=== PATIENT | female | born 1990 | race Caucasian/White ===

== ENCOUNTER → 2018-07-05 | Outpatient (CLI) | payer BC, OTHER | LOC: CIMAGING 12:33 | PROVIDERS: ATTEND Family Medicine | DX: N91.2 Amenorrhea, unspecified (principal) | CPT/HCPCS: 76830-PO ==

== ENCOUNTER 2018-10-17 13:09 | Emergency (ER) | payer BC, OTHER ==
[2018-10-17] MEDS ORDERED: fentaNYL 100 MCG/2 ML INJ IVP ONE (13:22)
[2018-10-17] MEDS ORDERED: ONDANSETRON 4 MG/2 ML VIAL IVP ONE ×2 (13:22→17:35)
[2018-10-17] MEDS ORDERED: NS 1,000 ML IV ONE ×3 (13:22→17:35)
--- NOTE | 2018-10-17 13:30 | EDPHY ---
H & P Smoking Status: Never smoked Time Seen by Provider: 10/17/18 13:15 HPI/ROS: HPI IUD just placed. Pelvic pain now. 27-year-old female by private vehicle with her boyfriend. She is a . She reports that she just had a Mirena IUD place this morning at 9:00 a.m. At a [facility] facility. She reports after placement she had some pelvic pain which she describes more as lower mid abdominal pain. She was told that this would go away. She reports the pain has steadily worsened. She has not had any vomiting. She denies any vaginal bleeding or vaginal discharge. No urinary complaints. Pain described as sharp and cramping. ROS: Constitutional: No fever, no chills. No weakness. Respiratory: No cough. No shortness of breath. Cardiac: No chest pain, no palpitations. Gastrointestinal: As above, no vomiting, no diarrhea. Genitourinary: No hematuria. No dysuria or increased frequency with urination. As above. Musculoskeletal: No back pain. No neck pain. No myalgias or arthralgias. Skin: No rashes. Neurological: No headache. No focal weakness or altered sensation. Past medical history: Depression. She takes Wellbutrin for this. Social history: Nonsmoker. No alcohol. Here with her boyfriend. Physical Exam: General Appearance: Alert, she appears uncomfortable but not in distress. Pale in complexion. This patient is responding to questions appropriately and in full sentences. This patient appears well-hydrated and well-nourished. Eyes: Pupils equal and round no pallor or injection. No lid edema, erythema or injection. Respiratory: There are no retractions, lungs are clear to auscultation with good air movement bilaterally. Cardiovascular: Regular rate and rhythm. No murmur. Gastrointestinal: Abdomen is soft with vague and mild suprapubic in generalized lower mid abdominal tenderness on palpation, no masses, bowel sounds normal. No focal tenderness at McBurney's point. No Miller sign. Neurological: Motor sensory function is grossly intact. Cranial nerves are normal. Gait is normal. Skin: Warm and dry, no rashes. Pale in complexion. Musculoskeletal: Neck is supple and nontender. No CVA tenderness on palpation. Extremities are symmetrical. All joints range without pain or impingement. Psychiatric: No agitation. No depression. Database: EKG: Imaging: Pelvic ultrasound: Extending out of right myometrium. Possible associated perforation. Small amount of free fluid noted. Procedures: Emergency department course: Triage vital signs reviewed and are normal. IV was placed. She was initially given 100 mcg of IV fentanyl for pain with 4 mg of IV Zofran. She will be started on IV normal saline with 1000 cc to be given over the next hour. 2:30 p.m., the patient has returned from ultrasound. She is reporting that her pain is much improved. She currently rates it as a 2/10. She declines further pain medication. Waiting on results of ultrasound. I explained to her and her boyfriend that the most difficult time of an IUD insertion is during the insertion in the immediate 12 hr to 24 hr afterwards regarding pain. Her creatinine was slightly elevated at 1.1 and therefore Toradol was not given. 2:55 p.m., the patient was re-evaluated, she is resting comfortably at this time. Repeat abdominal exam she is soft, nontender nondistended. Results of ultrasound pending. Her blood work and my concerns about her elevated creatinine were discussed with her. Follow-up was discussed. 3:00 p.m., we are currently awaiting the radiologist's report on the patient's pelvic ultrasound. Care turned over to Dr. Rosina Kim at this time. Differential Diagnosis: The differential diagnosis on this patient includes but is not limited to complication with IUD placement. Ectopic , ovarian torsion, tubo- ovarian abscess, vaginal wall laceration, appendicitis, volvulus unlikely. This represents a partial list of diagnoses considered. These considerations are based on history, physical exam, past history, reassessment and diagnostic testing. (Les Slaas) Constitutional: Initial Vital Signs Temperature (C) 36.4 C 10/17/18 13:16 Heart Rate 65 10/17/18 13:16 Respiratory Rate 18 10/17/18 13:16 Blood Pressure 107/59 L 10/17/18 13:16 O2 Sat (%) 100 10/17/18 13:16 O2 Delivery Mode Room Air Allergies/Adverse Reactions: No Known Allergies Allergy (Unverified 10/17/18 13:16) Home Medications: Medication Instructions Recorded Hydrocodone/APAP 5/325 [[place] 1 - 2 tab PO Q4-6PRN PRN #7 tab 10/17/18 5/325 (*)] Wellbutrin Xl 10/17/18 Medical Decision Making - Diagnostics Imaging Results: Imaging Impressions Pelvic/Renal Ultrasound 10/17/18 13:15 Impression: 1. Malpositioned IUD with the right arm extending into the right myometrium. 2. Small amount of free fluid in the pelvis and therefore mild perforation of the IUD cannot be excluded. 3. No ovarian torsion or adnexal masses. Findings and recommendations discussed with Emergency Department physician, Les Salas MD at 1500 hours, 10/17/2018. Final report concurs with initial preliminary interpretation. ED Course/Re-evaluation: I assumed care from Dr. Salas pending consultation with laundry pricing clerk regarding perforated uterus. I re-evaluated the patient who was complaining of ongoing 3 to 4/10 pain but had a soft belly and remained hemodynamically stable. She was noted to have an elevated creatinine and ketones in her urine and has been given a 2nd L of normal saline for presumed hypovolemia. She declined further pain medications.. I discussed the case with Dr. Hester, on-call for OBGYN who recommends transferring the patient to [facility] where she can remove the IUD and observe the patient. I discussed the plan with the patient who understands and is agreeable to this plan. She prefers to have her significant other take her by private vehicle instead of an ambulance. Given that she is hemodynamically stable I think this is safe. I discussed the case with Dr. Chowdhury who accepts the patient in transfer. (Rosina Kim) - Data Points Laboratory Results: 10/17/18 13:30 POC Sodium 137 mEq/L mEq/L (135-145) POC Potassium 4.5 mEq/L mEq/L (3.3-5.0) POC Chloride 109.0 mEq/L mEq/L (97-110) POC Total CO2 22 mEq/L mEq/L (22-31) POC BUN 12 mg/dL mg/dL (7-23) POC Creatinine 1.1 mg/dL H mg/dL (0.6-1.0) POC Glucose 124 mg/dL H mg/dL (70-100) POC Calcium 9.2 mg/dL mg/dL (8.5-10.4) Medications Given: Discontinued Medications Fentanyl (Sublimaze) 100 mcg IVP EDNOW ONE Stop: 10/17/18 13:23 Last Admin: 10/17/18 13:31 Dose: 100 mcg Sodium Chloride (Ns) 1,000 mls @ 0 mls/hr IV EDNOW ONE; Wide Open PRN Reason: Protocol Stop: 10/17/18 13:23 Last Admin: 10/17/18 13:30 Dose: 1,000 mls Sodium Chloride (Ns) 1,000 mls @ 0 mls/hr IV EDNOW ONE; Wide Open PRN Reason: Protocol Stop: 10/17/18 15:15 Last Admin: 10/17/18 15:18 Dose: 1,000 mls Ondansetron HCl (Zofran) 4 mg IVP EDNOW ONE Stop: 10/17/18 13:23 Last Admin: 10/17/18 13:30 Dose: 4 mg Point of Care Test Results: CBC CBC Collection Date 10/17/18 CBC Collection Time 13:25 WBC 7.76 RBC 3.77 HGB 12.5 HCT 36.5 PLT 294 Neut # 5.51 Neut 70.9 LYMPH # 1.73 LYMPH 22.3 MCV 96.8 Chemistry 10/17/18 13:30 POC Sodium 137 mEq/L mEq/L (135-145) POC Potassium 4.5 mEq/L mEq/L (3.3-5.0) POC Chloride 109.0 mEq/L mEq/L (97-110) POC Total CO2 22 mEq/L mEq/L (22-31) POC BUN 12 mg/dL mg/dL (7-23) POC Creatinine 1.1 mg/dL H mg/dL (0.6-1.0) POC Glucose 124 mg/dL H mg/dL (70-100) POC Calcium 9.2 mg/dL mg/dL (8.5-10.4) Urine Collection Date 10/17/18 Collection Time 14:25 HCG Results Negative Departure - Departure Disposition: Home, Routine, Self-Care Clinical Impression: Pain due to intrauterine contraceptive device (IUD), IUD (intrauterine device) in place Condition: Good Instructions: Acute Abdominal Pain (ED) Additional Instructions: Read and follow provided instructions. Follow-up with your primary care physician or OBGYN in 1-2 days for re- evaluation as discussed. Your creatinine which is a measure of your kidney function was slightly elevated in the emergency department. Because of this I do not want you to take ibuprofen or other NSAID type medications until you have been cleared by your primary care physician. You should have your creatinine recheck in 5 days. This can be done by your primary care physician. Take pain medication only as prescribed and only as needed. 1-2 pills every 4- [address] while on this medication. Return to the emergency department for worsening pain, fever, vaginal bleeding or other serious concerns. Referrals: NONE *PRIMARY CARE P,. [Primary Care Provider] - As per Instructions [facility] [Outside] - As per Instructions Prescriptions: Hydrocodone/APAP 5/325 [[place] 5/325 (*)] 1 - 2 tab PO Q4-6PRN PRN #7 tab PRN Reason: Pain, Moderate
--- NOTE | 2018-10-17 17:29 | EDPHY ---
H & P Time Seen by Provider: 10/17/18 13:15 HPI/ROS: Chief complaint. Abdominal pain HPI. 27-year-old female had IUD placed this morning. She felt well when she went to have the IUD placed. Several hours after the IUD placement she began to have crampy low abdominal pain like severe menstrual cramps. No vaginal bleeding or spotting. No chest pain or shortness of breath. She was seen at [facility] originally and ultrasound showed malpositioned IUD with the right arm in the right myometrium and some free fluid in the pelvis. Concern for perforation and patient was transferred to the emergency department ROS 10 systems were reviewed and negative with the exception of the elements mentioned in the history of present illness Past Medical/Surgical History: Asthma, depression, foot surgery Social History: Single, nonsmoker, no alcohol Smoking Status: Never smoked Physical Exam: General Appearance: Alert pleasant well-developed female mild distress vital signs are stable Eyes: Pupils equal and round no pallor or injection. ENT, Mouth: Mucous membranes are moist. Respiratory: There are no retractions, lungs are clear to auscultation. Cardiovascular: Regular rate and rhythm. Gastrointestinal: Abdomen is soft with suprapubic tenderness. Some adnexal tenderness. No discomfort at McBurney's point Neurological: Awake and alert, sensory and motor exams grossly normal. Skin: Warm and dry, no rashes. Musculoskeletal: Neck is supple nontender. Extremities symmetrical, full range of motion. Psychiatric: Patient is oriented X 3, there is no agitation. Constitutional: Initial Vital Signs Temperature (C) 36.4 C 10/17/18 13:16 Heart Rate 65 10/17/18 13:16 Respiratory Rate 18 10/17/18 13:16 Blood Pressure 107/59 L 10/17/18 13:16 O2 Sat (%) 100 10/17/18 13:16 O2 Delivery Mode Room Air O2 (L/minute) 2 Allergies/Adverse Reactions: No Known Allergies Allergy (Unverified 10/17/18 13:16) Home Medications: Medication Instructions Recorded Hydrocodone/APAP 5/325 [[place] 1 - 2 tab PO Q4-6PRN PRN #7 tab 10/17/18 5/325 (*)] Wellbutrin Xl 10/17/18 Medical Decision Making - Diagnostics Imaging Results: Imaging Impressions Pelvic/Renal Ultrasound 10/17/18 13:15 Impression: 1. Malpositioned IUD with the right arm extending into the right myometrium. 2. Small amount of free fluid in the pelvis and therefore mild perforation of the IUD cannot be excluded. 3. No ovarian torsion or adnexal masses. Findings and recommendations discussed with Emergency Department physician, Les Salas MD at 1500 hours, 10/17/2018. Final report concurs with initial preliminary interpretation. Procedures: IV normal saline. Morphine, Zofran, Toradol ED Course/Re-evaluation: I consulted discussed case with Dr. Hester for OBGYN who sees the patient in the emergency department. She removes the IUD. Plan is to watch the patient and make sure she remained stable. Re-evaluation 6:30 p.m. Patient is stable minimal pain. No vaginal bleeding. Patient feels comfortable to be discharged I discussed the case again with Dr. Hester who recommends no antibiotics. Mainly anti-inflammatories and some pain medication are appropriate per Dr. Hester. She will see the patient in the office in the next 1-2 days. Differential Diagnosis: IUD malpositioned with apparent mild uterine perforation - Data Points Laboratory Results: Laboratory Results 10/17/18 13:25 10/17/18 13:25 10/17/18 10/17/18 10/17/18 14:25 13:30 13:25 WBC RBC Hgb Hct MCV MCH MCHC RDW Plt Count MPV Neut % (Auto) Lymph % (Auto) Cobb % (Auto) Eos % (Auto) Baso % (Auto) Nucleat RBC Rel Count Absolute Neuts (auto) Absolute Lymphs (auto) Absolute Monos (auto) Absolute Eos (auto) Absolute Basos (auto) Absolute Nucleated RBC Immature Gran % Immature Gran # POC Sodium 137 mEq/L mEq/L (135-145) Sodium 137 mEq/L mEq/L (135-145) POC Potassium 4.5 mEq/L mEq/L (3.3-5.0) Potassium 4.5 mEq/L mEq/L (3.5-5.2) POC Chloride 109.0 mEq/L mEq/L (97-110) Chloride 104 mEq/L mEq/L (97-110) Carbon Dioxide 20 mEq/l L mEq/l (22-31) POC Total CO2 22 mEq/L mEq/L (22-31) Anion Gap 13 mEq/L mEq/L (6-14) POC BUN 12 mg/dL mg/dL (7-23) BUN 15 mg/dL mg/dL (7-23) Creatinine 1.1 mg/dL H mg/dL (0.6-1.0) POC Creatinine 1.1 mg/dL H mg/dL (0.6-1.0) Estimated GFR > 60 Glucose 108 mg/dL H mg/dL (70-100) POC Glucose 124 mg/dL H mg/dL (70-100) POC Calcium 9.2 mg/dL mg/dL (8.5-10.4) Calcium 9.0 mg/dL mg/dL (8.5-10.4) Urine Color [place] Urine Appearance CLEAR Urine pH 8.0 H (5.0-7.5) Ur Specific [place] 1.026 (1.002-1.030) Urine Protein 2+ H (NEGATIVE) Urine Ketones 1+ H (NEGATIVE) Urine Blood NEGATIVE (NEGATIVE) Urine Nitrate NEGATIVE (NEGATIVE) Urine Bilirubin NEGATIVE (NEGATIVE) Urine Urobilinogen NEGATIVE EU EU (0.2-1.0) Ur Leukocyte Esterase NEGATIVE (NEGATIVE) Urine RBC 1-3 /hpf /hpf (0-3) Urine WBC 1-3 /hpf /hpf (0-3) Ur Epithelial Cells TRACE /lpf /lpf (NONE-1+) Urine Mucus 3+ /lpf H /lpf (NONE-1+) Urine Glucose NEGATIVE (NEGATIVE) 10/17/18 13:25 WBC 8.39 10^3/uL 10^3/uL (3.80-9.50) RBC 3.83 10^6/uL L 10^6/uL (4.18-5.33) Hgb 12.5 g/dL L g/dL (12.6-16.3) Hct 36.8 % L % (38.0-47.0) MCV 96.1 fL fL (81.5-99.8) MCH 32.6 pg pg (27.9-34.1) MCHC 34.0 g/dL g/dL (32.4-36.7) RDW 12.5 % % (11.5-15.2) Plt Count 308 10^3/uL 10^3/uL (150-400) MPV 10.4 fL fL (8.7-11.7) Neut % (Auto) 71.0 % % (39.3-74.2) Lymph % (Auto) 22.8 % % (15.0-45.0) Cobb % (Auto) 5.1 % % (4.5-13.0) Eos % (Auto) 0.2 % L % (0.6-7.6) Baso % (Auto) 0.4 % % (0.3-1.7) Nucleat RBC Rel Count 0.0 % % (0.0-0.2) Absolute Neuts (auto) 5.96 10^3/uL 10^3/uL (1.70-6.50) Absolute Lymphs (auto) 1.91 10^3/uL 10^3/uL (1.00-3.00) Absolute Monos (auto) 0.43 10^3/uL 10^3/uL (0.30-0.80) Absolute Eos (auto) 0.02 10^3/uL L 10^3/uL (0.03-0.40) Absolute Basos (auto) 0.03 10^3/uL 10^3/uL (0.02-0.10) Absolute Nucleated RBC 0.00 10^3/uL 10^3/uL (0-0.01) Immature Gran % 0.5 % % (0.0-1.1) Immature Gran # 0.04 10^3/uL 10^3/uL (0.00-0.10) POC Sodium Sodium POC Potassium Potassium POC Chloride Chloride Carbon Dioxide POC Total CO2 Anion Gap POC BUN BUN Creatinine POC Creatinine Estimated GFR Glucose POC Glucose POC Calcium Calcium Urine Color Urine Appearance Urine pH Ur Specific [place] Urine Protein Urine Ketones Urine Blood Urine Nitrate Urine Bilirubin Urine Urobilinogen Ur Leukocyte Esterase Urine RBC Urine WBC Ur Epithelial Cells Urine Mucus Urine Glucose Medications Given: Discontinued Medications Fentanyl (Sublimaze) 100 mcg IVP EDNOW ONE Stop: 10/17/18 13:23 Last Admin: 10/17/18 13:31 Dose: 100 mcg Sodium Chloride (Ns) 1,000 mls @ 0 mls/hr IV EDNOW ONE; Wide Open PRN Reason: Protocol Stop: 10/17/18 13:23 Last Admin: 10/17/18 13:30 Dose: 1,000 mls Sodium Chloride (Ns) 1,000 mls @ 0 mls/hr IV EDNOW ONE; Wide Open PRN Reason: Protocol Stop: 10/17/18 15:15 Last Admin: 10/17/18 15:18 Dose: 1,000 mls Sodium Chloride (Ns) 1,000 mls @ 0 mls/hr IV EDNOW ONE; Wide Open PRN Reason: Protocol Stop: 10/17/18 17:36 Last Admin: 10/17/18 17:52 Dose: 1,000 mls Ketorolac Tromethamine (Toradol) 30 mg IVP EDNOW ONE Stop: 10/17/18 18:07 Last Admin: 10/17/18 18:29 Dose: 30 mg Morphine Sulfate (Morphine) 6 mg IVP EDNOW ONE Stop: 10/17/18 17:36 Last Admin: 10/17/18 17:45 Dose: 6 mg Ondansetron HCl (Zofran) 4 mg IVP EDNOW ONE Stop: 10/17/18 13:23 Last Admin: 10/17/18 13:30 Dose: 4 mg Ondansetron HCl (Zofran) 4 mg IVP EDNOW ONE Stop: 10/17/18 17:36 Last Admin: 10/17/18 17:45 Dose: 4 mg Point of Care Test Results: CBC CBC Collection Date 10/17/18 CBC Collection Time 13:25 WBC 7.76 RBC 3.77 HGB 12.5 HCT 36.5 PLT 294 Neut # 5.51 Neut 70.9 LYMPH # 1.73 LYMPH 22.3 MCV 96.8 Chemistry 10/17/18 13:30 POC Sodium 137 mEq/L mEq/L (135-145) POC Potassium 4.5 mEq/L mEq/L (3.3-5.0) POC Chloride 109.0 mEq/L mEq/L (97-110) POC Total CO2 22 mEq/L mEq/L (22-31) POC BUN 12 mg/dL mg/dL (7-23) POC Creatinine 1.1 mg/dL H mg/dL (0.6-1.0) POC Glucose 124 mg/dL H mg/dL (70-100) POC Calcium 9.2 mg/dL mg/dL (8.5-10.4) Urine Collection Date 10/17/18 Collection Time 14:25 HCG Results Negative Departure - Departure Disposition: Home, Routine, Self-Care Clinical Impression: Pain due to intrauterine contraceptive device (IUD), IUD (intrauterine device) in place Condition: Good Instructions: Acute Abdominal Pain (ED) Additional Instructions: Read and follow provided instructions. Follow-up with your primary care physician or OBGYN in 1-2 days for re- evaluation as discussed. Your creatinine which is a measure of your kidney function was slightly elevated in the emergency department. Because of this I do not want you to take ibuprofen or other NSAID type medications until you have been cleared by your primary care physician. You should have your creatinine recheck in 5 days. This can be done by your primary care physician. Ibuprofen 600 mg every 6 hr for discomfort. Hydrocodone if necessary for pain. Hydrocodone contain some Tylenol Nara do not take extra Tylenol a taking hydrocodone. May use hydrocodone and ibuprofen together. Hydrocodone dose is 1 pill every 4-6 hours as needed for pain. Do not drive while on this medication. Return to the emergency department for worsening pain, fever, vaginal bleeding or other serious concerns. Referrals: [facility] [Outside] - As per Instructions NONE *PRIMARY CARE P,. [Primary Care Provider] - As per Instructions Caterina Hester MD [Medical Doctor] - 1-2 days without fail Prescriptions: Hydrocodone/APAP 5/325 [[place] 5/325 (*)] 1 - 2 tab PO Q4-6PRN PRN #7 tab PRN Reason: Pain, Moderate
[2018-10-17] MEDS ORDERED: KETOROLAC 30 MG/1 ML SDV IVP ONE (18:06)
[2018-10-17 18:23] LABS: PLATELET COUNT 308 10^3/uL (150-400)
[2018-10-17 19:26] VITALS: BP 102/61
[2018-10-17] MEDS ORDERED: HYDROCOD/APAP 5/325 PREPACK#6 BTL TAKEHOME ONE (19:38)
--- NOTE | 2018-10-17 20:25 | GCON ---
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 HISTORY OF PRESENT ILLNESS: The patient is a 27-year-old 0, who had a Mirena IUD placed at [facility] on the morning of the . She reported that the procedure was quite lucien nful. She felt lightheaded, dizzy, and nauseous initially, but the procedure was felt to have gone w ell, and she was discharged home. Approximately an hour after the insertion, she developed significa nt pelvic pain and lower midabdominal pain that steadily worsened over time. She had nausea, but no vomiting. The pain caused her to be concerned, and she presented to the [facility] in [place]. She had no vaginal bleeding or abnormal vaginal discharge. No urinary complaints. Her p ain was generally a severe cramping and somewhat sharp. On evaluation in the [facility], she was afebrile. Vital signs were stable. She had a pelvic ultrasound, which revealed a Mirena IUD, and the right ar m was felt to be embedded in the myometrium, extending into the right myometrium, and there was a sma ll amount of free fluid in the pelvis. The ovaries were normal. No torsion. No adnexal masses. Th e differential was possible malpositioned IUD causing partial uterine perforation. The patient was t [facility] sent to the emergency department at [facility] for evaluation. The patient reported that her pain was improved with medication, but generally was still pretty significant cramping pain, 7/10. Some nausea. No vomiting. Again, no vaginal bleeding or abnormal vaginal discharge. When we discussed o ptions, the patient wished to have the IUD removed after my recommendations. The patient has no past obstetrical history. GYNECOLOGICAL HISTORY: She has a normal menstrual triad. Normal last menstrual period of September 29, 2018. Her periods have steadily gotten worse in terms of increased bleeding and cramping, and she wi shed to have the IUD for contraception, as well as menstrual control. Currently, she has just been u sing condoms and has not used any oral contraceptive pills. She denies abnormal Paps and said she coffman d a normal Pap in the last year. Denies abnormal gynecological problems, ovarian cysts, endometriosi s, or any sexually transmitted diseases. MEDICAL HISTORY: She has a remote history of exercise-induced asthma. She rarely uses her inhaler. SURGICAL HISTORY: Only right foot surgery after an injury. ALLERGIES: No known drug allergies. CURRENT MEDICATIONS: None. FAMILY HISTORY: Noncontributory. SOCIAL HISTORY: She presents with her boyfriend, long-term partner. She denies smoking. Alcohol 1 to 2 times a week. Marijuana 1 to 2 times a month. No other drug use. 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 REVIEW OF SYSTEMS: As above. The rest of her 10-point review of systems is negative. PHYSICAL EXAMINATION: VITAL SIGNS: She is afebrile. Vital signs are stable. Temperature is 36.6, blood pressure 102/54, pulse 84, respiratory rate 16, and she is 95% on room air. GENERAL: She is a well-developed, well-nourished white female in no acute distress. LUNGS: Clear to auscultation francisco javier aterally. HEART: Regular rate and rhythm. No murmur. ABDOMEN: Soft and nondistended. Minimal te nderness in the lower pelvis. PELVIC EXAM: Normal external genitalia. Normal nulliparous cervix. IUD strings are visible. Moderate brown discharge in the vault. Gonorrhea and chlamydia cultures we re sent. The IUD strings were visualized, grasped carefully, and with gentle careful traction and a lot of resistance, the IUD was removed intact. Both arms were visualized, and the IUD was at an abno rmal angle. The patient tolerated this well. There was no bleeding after removal of the IUD. There was no cervical motion tenderness and no fundal tenderness. ASSESSMENT AND PLAN: A 27-year-old 0 with a malpositioned intrauterine device and possible p artial uterine perforation. No evidence of significant bleeding or uterine damage. I feel that she will feel better after the intrauterine device is removed. I ordered intravenous Toradol. She will be observed in the emergency department. If she is stable, she can be discharged home to follow up rosa maria eastman at [facility]. She declined oral contraceptive pills at this time. She will just u se condoms. /[id number]/MODL
== END 2018-10-17 19:50 | disposition home or self-care (01) ==
LOC: CED 13:09
PROC: 0UPD7HZ Removal of Contraceptive Device from Uterus and Cervix, Via Natural or Artificial Opening (ICD-10-PCS; principal; 2018-10-17)
DX: T83.32XA Displacement of intrauterine contraceptive device, initial encounter (principal)
CPT/HCPCS: 76856-PO; 80048-ER; 81025-ER; 85025-QW-ER; 96374; J1885; J2270; J2405; J3010